=== PATIENT | female | born 1985 | race Caucasian/White ===

== ENCOUNTER 2020-11-17 12:41 | Outpatient (CLI) | payer MEDICARE, MEDICAID ==
[~2020-11-17] VITALS: Ht 162.6 cm; Wt 116.8 kg
[~2020-11-17 12:41] MED LIST: CITA40TA19 PO; FLUT9.9S NSEACH; IBUP-1780 PO; MEDR5TAB PO; PANT40TA2 PO
== END 2020-11-17 14:05 | disposition home or self-care (01) ==
LOC: PREOP 12:41
PROVIDERS: ATTEND Obstetrics & Gynecology
DX: Z01.818 Encounter for other preprocedural examination (principal)

== ENCOUNTER 2020-11-19 11:24 | Day surgery (SDC) | payer MEDICARE, MEDICAID ==
[~2020-11-19] VITALS: Ht 162.6 cm; Wt 116.8 kg
[2020-11-19] VITALS (11 sets, daily range): BP systolic 99–119; BP diastolic 48–78
--- NOTE | 2020-11-19 08:00 | Discharge Inst-Surgical ---
Discharge Inst-Surgical Depart Medication/Instructions New, Converted or Re-Newed RX: Other Consults/Follow Up Patient Instructions: As directed Orders & Referrals Follow Up Appt: Call to make follow up appt. for patient in 2 weeks. Activity: Rest for 24 hours, than as tolerated. May use [id number] Motrin as needed for cramps and pain Diet: As tolerated-Clear shower or tub bathe as desired. Patient to return to the clinic as soon as possible for: Temperature greater than 101F, Severe Pain, Foul discharge from incision or vagina, Excessive Bleeding (more than a period). Activity Activity as Tolerated: No Diet Discharge Diet: No Restrictions ISRRAEL HOANG MD Nov 19, 2020 08:00
--- NOTE | 2020-11-19 08:01 | Progress Note-Pre Operative ---
Pre-Operative Progress Note H&P Reviewed The H&P was reviewed, patient examined and no changes noted. Date Seen by Provider: Nov 19, 2020 Time Seen by Provider: 12:45 Date H&P Reviewed: Nov 19, 2020 Time H&P Reviewed: 12:45 Pre-Operative Diagnosis: Dysfunctional uterine bleeding/menorrhagia/severe vaginismus/endometrial po ISRRAEL HOANG MD Nov 19, 2020 08:01
--- NOTE | 2020-11-19 08:02 | Progress Note-Post Operative ---
Post-Operative Progess Note Surgeon (s)/Event Host (s) Surgeon ISRRAEL HOANG MD Event Host: None Pre-Operative Diagnosis Dysfunctional uterine bleeding/menorrhagia/severe vaginismus/endometrial po Post-Operative Diagnosis Same with pathology pending Procedure & Operative Findings Date of Procedure 11/19/20 Procedure Performed/Findings Examination under anesthesia/transvaginal ultrasound under anesthesia /colposcopy with biopsy /D&C Examination anesthesia reveals normal internal/external genitalia.The hymenal ring is relatively intact.The cervix is nulliparous the uterus is anteverted And freely mobile Left ovary is easily palpable the right ovary is palpable but not distinctly As the left Vaginal mucosa is normal and rugous There is no abnormal vaginal discharge Clitoris and perineum are normal Anesthesia Type General Estimated Blood Loss Estimated blood loss (mL): Minimal Specimens/Packing Specimens Removed Cervical biopsy (2) and endometrial curettings ISRRAEL HOANG MD Nov 19, 2020 08:02
[~2020-11-19 11:24] MED LIST changes: +D5 LR IV SOLUTION 1,000 ML IV SCH; +KETOROLAC 30 MG/ML VIAL IVP ONE; +ONDANSETRON 4 MG/2 ML (SDV) Z0FRAN IVP PRN; +fentaNYL INJ 100 MCG/2 ML AMP IVP PRN
[2020-11-19] MEDS ORDERED: ceFAZolin INJECTION 1,000 MG ONE (12:08)
[2020-11-19] MEDS ORDERED: WATER (STERILE) FOR INJECTION 10 ML ONE (12:09)
[2020-11-19] MEDS ORDERED: ceFAZolin INJECTION 1,000 MG in WATER (STERILE) FOR INJECTION 10 ML IV ONE (12:15)
[2020-11-19] MEDS ORDERED: LACTATED RINGERS 1,000 ML IV PRN (12:15)
[2020-11-19] MEDS ORDERED: FAMOTIDINE 20MG/2ML IV (PEPCID) ONE (12:34)
[2020-11-19] MEDS ORDERED: ROCURONIUM 10 MG/ML 5 ML SYRINGE IV ONE (12:44)
[2020-11-19] MEDS ORDERED: fentaNYL INJ 100 MCG/2 ML AMP ONE (12:44)
[2020-11-19] MEDS ORDERED: proPOfol 200 MG/20 ML (DIPRIVAN) VIAL IV ONE (12:44)
[2020-11-19] MEDS ORDERED: ONDANSETRON 4 MG/2 ML (SDV) Z0FRAN ONE (12:44)
[2020-11-19] MEDS ORDERED: MIDAZOLAM 2 MG/2 ML (VERSED) VIAL ONE (12:44)
[2020-11-19 12:57] LABS: BASOPHILS # (AUTO) 0.1 10^3/uL (0.0-0.1); BASOPHILS % (AUTO) 1 % (0-10); EOSINOPHILS # (AUTO) 0.2 10^3/uL (0.0-0.3); EOSINOPHILS % (AUTO) 2 % (0-10); HEMATOCRIT 41 % (35-52); HEMOGLOBIN 13.5 g/dL (11.5-16.0); LYMPHOCYTES # (AUTO) 4.4 10^3/uL (1.0-4.0); LYMPHOCYTES % (AUTO) 36 % (12-44); MEAN CORPUSCULAR HEMOGLOBIN 31 pg (25-34); MEAN CORPUSCULAR HGB CONC 33 g/dL (32-36); MEAN CORPUSCULAR VOLUME 93 fL (80-99); MEAN PLATELET VOLUME 9.9 fL (9.0-12.2); MONOCYTES # (AUTO) 0.5 10^3/uL (0.0-1.0); MONOCYTES % (AUTO) 4 % (0-12); NEUTROPHILS # (AUTO) 6.9 10^3/uL (1.8-7.8); NEUTROPHILS % (AUTO) 57 % (42-75); PLATELET COUNT 328 10^3/uL (130-400); WHITE BLOOD COUNT 12.1 10^3/uL (4.3-11.0)
--- NOTE | 2020-11-19 13:49 | Anesthesia-General Post-Op ---
General Patient Condition Mental Status/LOC: Same as Preop Cardiovascular: Satisfactory Nausea/Vomiting: Absent Respiratory: Satisfactory Pain: Controlled Complications: Absent Post Op Complications Complications None Follow Up Care/Instructions Patient Instructions None needed. Anesthesia/Patient Condition Patient Condition Patient is doing well, no complaints, stable vital signs, no apparent adverse anesthesia problems. No complications reported per nursing. SURINDER FULTON CRNA Nov 19, 2020 13:49
[2020-11-19] MEDS ORDERED: SEVOFLURANE (ULTANE) 15 ML INHAL SOLN ONE (13:50)
[2020-11-19] MEDS ORDERED: KETOROLAC 30 MG/ML VIAL ONE (14:00)
[2020-11-19] MEDS ORDERED: morphine INJ 10 MG/ML 1ML (SYR OR VIAL) ONE (14:00)
[2020-11-19] MEDS ORDERED: morphine INJ 10 MG/ML 1ML (SYR OR VIAL) IVP ONE (14:00)
[2020-11-19] MEDS ORDERED: KETOROLAC 30 MG/ML VIAL IVP ONE (14:00)
[2020-11-19] MEDS ORDERED: ONDANSETRON 4 MG/2 ML (SDV) Z0FRAN IVP PRN (14:00)
--- NOTE | 2020-11-19 14:07 | Diagnostic Imaging Report ---
PROCEDURE: Pelvic comp/transvaginal sonogram. TECHNIQUE: Complete transabdominal and transvaginal pelvic ultrasound was performed. In addition, limited pelvic Doppler was performed. INDICATION: Menorrhagia and dysmenorrhea. The uterus is anteverted measuring 6.0 x 2.9 x 4.2 cm. Endometrium is 4 mm in thickness. No myometrial mass is detected. The right ovary measures 2.7 x 1.6 x 1.4 cm and the left ovary measures 3.8 x 2.8 x 3.8 cm. Left ovary does contain a 3.2 x 2.1 x 3.1 cm cyst. There is blood flow to both ovaries. No free fluid is detected. IMPRESSION: 3.2 cm left ovarian cyst. This study is otherwise unremarkable. Dictated by: Dictated on workstation # [id number]
[2020-11-19] MEDS ORDERED: FAMOTIDINE 20MG/2ML IV (PEPCID) IVP ONE (17:30)
--- NOTE | 2020-11-19 21:55 | OPERATIVE REPORT ---
DATE OF SERVICE: 11/19/2020 PREOPERATIVE DIAGNOSES: Severe vaginismus with dysfunctional uterine bleeding and with no recent Pap smear. POSTOPERATIVE DIAGNOSES: Severe vaginismus with dysfunctional uterine bleeding and with no recent Pap smear. OPERATIVE PROCEDURE: Examination under anesthesia, transvaginal ultrasound under anesthesia, colposcopy with directed biopsy of the cervix under anesthesia and D and C. OPERATIVE DESCRIPTION: With the patient in the supine position under satisfactory general anesthesia, she was repositioned in dorsal lithotomy position in the [facility] and then transvaginal ultrasound was performed by radiology. See their report. On completion of the radiologist portion of procedure, the patient was prepped and draped in the usual fashion for vaginal surgery. The ultrasound had demonstrated that the bladder was essentially empty. Weighted speculum was used to expose the cervix, which was grasped anteriorly with single tooth tenaculum. The cervix was saturated with acetic acid and then after several minutes that was evacuated out. Colposcopy revealed acetowhite lesion at the 3 o'clock and 7 o'clock position of the cervix. Both of these lesions were biopsied essentially removing each lesion completely. They were labeled appropriately and sent to pathology for permanent section. The cervix was now serially dilated with Rosalio dilators to a #18 Rosalio and then a curved sharp curette was introduced and endometrial cavity curettaged in all 4 quadrants to good uterine cry. An adequate amount of tissue was retrieved for pathologic evaluation. The tissue was labeled as endometrial curettings and sent to pathology for permanent section as well. The curette having been removed, the tenaculum was removed. There was no bleeding from the puncture site. The biopsy sites on the cervix had been touched with silver nitrate and they were hemostatic. Sponge and needle counts were correct. Blood loss was minimal. The patient was now uneventfully awakened from her general anesthesia and transferred to the recovery room in stable condition with plans for discharge home PAR. Job ID: [id number] DocumentID: [id number] Dictated Date: 11/19/2020 13:40:17 Day Treatment Clinician/Art Therapist Date: 11/19/2020 21:54:08 Dictated By: ISRRAEL HOANG MD
== END 2020-11-19 16:05 ==
LOC: SDC 11:24
PROVIDERS: ATTEND Obstetrics & Gynecology
DX: N94.2 Vaginismus (principal); N93.9 Abnormal uterine and vaginal bleeding, unspecified; N92.0 Excessive and frequent menstruation with regular cycle; D26.1 Other benign neoplasm of corpus uteri; N72 Inflammatory disease of cervix uteri; G43.909 Migraine, unspecified, not intractable, without status migrainosus; K21.9 Gastro-esophageal reflux disease without esophagitis; E66.01 Morbid (severe) obesity due to excess calories; Z79.899 Other long term (current) drug therapy; Z68.41 Body mass index [BMI] 40.0-44.9, adult; Z83.3 Family history of diabetes mellitus; Z82.49 Family history of ischemic heart disease and other diseases of the circulatory system
CPT/HCPCS: 36415; 76830; 76856; 84703; 85025; 87081

== ENCOUNTER 2021-05-08 05:29 | Outpatient (CLI) | payer MEDICARE, MEDICAID ==
[~2021-05-08] VITALS: Ht 162.6 cm; Wt 113.6 kg
[~2021-05-08 05:29] MED LIST changes: -D5 LR IV SOLUTION 1,000 ML IV SCH; -KETOROLAC 30 MG/ML VIAL IVP ONE; -ONDANSETRON 4 MG/2 ML (SDV) Z0FRAN IVP PRN; -fentaNYL INJ 100 MCG/2 ML AMP IVP PRN
== END 2021-05-08 10:43 | disposition home or self-care (01) ==
LOC: PREOP 05:29
PROVIDERS: ATTEND Obstetrics & Gynecology
DX: Z01.818 Encounter for other preprocedural examination (principal)

== ENCOUNTER 2021-05-15 06:15 | Day surgery (SDC) | payer MEDICARE, MEDICAID ==
[2021-05-15] VITALS (13 sets, daily range): BP systolic 112–145; BP diastolic 61–92
[2021-05-15] MEDS ORDERED: LACTATED RINGERS 1,000 ML IV PRN (06:30)
[2021-05-15] MEDS ORDERED: ceFAZolin INJECTION 1,000 MG VIAL IV ONE (06:30)
[2021-05-15 07:01] LABS: BASOPHILS # (AUTO) 0.1 10^3/uL (0.0-0.1); BASOPHILS % (AUTO) 1 % (0-10); EOSINOPHILS # (AUTO) 0.1 10^3/uL (0.0-0.3); EOSINOPHILS % (AUTO) 1 % (0-10); HEMATOCRIT 42 % (35-52); LYMPHOCYTES # (AUTO) 4.2 10^3/uL (1.0-4.0); LYMPHOCYTES % (AUTO) 37 % (12-44); MEAN CORPUSCULAR HEMOGLOBIN 31 pg (25-34); MEAN CORPUSCULAR HGB CONC 33 g/dL (32-36); MEAN CORPUSCULAR VOLUME 91 fL (80-99); MEAN PLATELET VOLUME 9.7 fL (9.0-12.2); MONOCYTES # (AUTO) 0.6 10^3/uL (0.0-1.0); MONOCYTES % (AUTO) 5 % (0-12); NEUTROPHILS # (AUTO) 6.3 10^3/uL (1.8-7.8); NEUTROPHILS % (AUTO) 56 % (42-75); PLATELET COUNT 307 10^3/uL (130-400); WHITE BLOOD COUNT 11.3 10^3/uL (4.3-11.0)
[2021-05-15] MEDS ORDERED: SUCCINYLCHOLINE INJ 100 MG/5 ML SYR/VIAL ONE (07:11)
[2021-05-15] MEDS ORDERED: ONDANSETRON 4 MG/2 ML (SDV) Z0FRAN ONE (07:11)
[2021-05-15] MEDS ORDERED: LIDOCAINE PF 2% 5 ML (XYLOCAINE) VIAL ONE (07:11)
[2021-05-15] MEDS ORDERED: SEVOFLURANE (ULTANE) 15 ML INHAL SOLN ONE ×2 (07:11→09:12)
[2021-05-15] MEDS ORDERED: ROCURONIUM 10 MG/ML 5 ML SYRINGE IV ONE (07:11)
[2021-05-15] MEDS ORDERED: fentaNYL INJ 100 MCG/2 ML AMP ONE (07:11)
[2021-05-15] MEDS ORDERED: MIDAZOLAM 2 MG/2 ML (VERSED) VIAL ONE (07:11)
[2021-05-15] MEDS ORDERED: proPOfol 200 MG/20 ML (DIPRIVAN) VIAL IV ONE (07:11)
[2021-05-15] MEDS ORDERED: LIDOCAINE/EPI 2% 1:100,00 (XYLOCAINE) 20 ML VIAL ONE (07:27)
--- NOTE | 2021-05-15 07:52 | Progress Note-Pre Operative ---
Pre-Operative Progress Note H&P Reviewed The H&P was reviewed, patient examined and no changes noted. Date Seen by Provider: May 15, 2021 Time Seen by Provider: 07:52 Date H&P Reviewed: May 15, 2021 Time H&P Reviewed: 07:52 Pre-Operative Diagnosis: Menometrorrhagia chronic pelvic pain ISRRAEL HOANG MD May 15, 2021 07:52
--- NOTE | 2021-05-15 07:53 | Progress Note-Post Operative ---
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
[2021-05-15] MEDS ORDERED: fentaNYL INJ 100 MCG/2 ML AMP IVP PRN (08:00)
[2021-05-15] MEDS ORDERED: KETOROLAC 30 MG/ML VIAL IVP SCH (08:00)
[2021-05-15] MEDS ORDERED: ESTROGENS CONJ INJECTION 25 MG in WATER (STERILE) FOR INJECTION 5 ML IV ONE (08:00)
[2021-05-15] MEDS ORDERED: BENZOCAINE/MENTHOL (DERMOPLAST) 56 ML CAN TP PRN (08:00)
[2021-05-15] MEDS ORDERED: ONDANSETRON 4 MG/2 ML (SDV) Z0FRAN IVP PRN ×2 (08:00→09:45)
[2021-05-15] MEDS ORDERED: NALOXONE 0.4 MG/ML 1 ML (NARCAN) VIAL IV PRN (08:00)
[2021-05-15] MEDS ORDERED: oxyCODONE/APAP 5/325MG (PERCOCET 5) TABLET PO PRN (08:00)
[2021-05-15] MEDS ORDERED: PROMETHAZINE INJ 25 MG/ML (PHENERGAN) AMP IM PRN (08:00)
[2021-05-15] MEDS ORDERED: GLYCOPYRROLATE 0.2 MG/ML (ROBINUL) 2 ML VIAL ONE (09:14)
[2021-05-15] MEDS ORDERED: NEOSTIGMINE 3 MG/3 ML VIAL ONE (09:14)
--- NOTE | 2021-05-15 09:36 | Anesthesia-General Post-Op ---
General Patient Condition Mental Status/LOC: Same as Preop Cardiovascular: Satisfactory Nausea/Vomiting: Absent Respiratory: Satisfactory Pain: Controlled Complications: Absent Post Op Complications Complications None Follow Up Care/Instructions Patient Instructions None needed. Anesthesia/Patient Condition Patient Condition Patient is doing well, no complaints, stable vital signs, no apparent adverse anesthesia problems. No complications reported per nursing. KIKA RODRÍGUEZ CRNA May 15, 2021 09:36
[2021-05-15] MEDS ORDERED: KETOROLAC 30 MG/ML VIAL ONE (09:42)
[2021-05-15] MEDS ORDERED: WATER (STERILE) FOR INJECTION 10 ML ONE (09:43)
[2021-05-15] MEDS ORDERED: ESTROGENS CONJ INJECTION 5 ML ONE (09:43)
[2021-05-15] MEDS ORDERED: morphine INJ 10 MG/ML 1ML (SYR OR VIAL) ONE (09:44)
[2021-05-15] MEDS ORDERED: morphine INJ 10 MG/ML 1ML (SYR OR VIAL) IVP ONE (09:45)
[2021-05-15] MEDS ORDERED: HYDROmorphone 2 MG/ML VIAL (DILAUDID) IV ONE (09:45)
[2021-05-15] MEDS ORDERED: PROMETHAZINE INJ 25 MG/ML (PHENERGAN) AMP IVP ONE (09:45)
[2021-05-15] MEDS ORDERED: MEPERIDINE (DEMEROL) INJ 50 MG/ML IVP ONE (09:45)
--- NOTE | 2021-05-15 10:37 | Discharge Inst-Surgical ---
Discharge Inst-Surgical Depart Medication/Instructions New, Converted or Re-Newed RX: Other Consults/Follow Up Patient Instructions: As directed Orders & Referrals Follow Up Appt: Return to clinic on Tuesday, May 18, 2021 for staple removal Call to make follow up appt. for patient in 4 weeks. Activity: Rest for 24 hours, than as tolerated. Wound Care: May remove Band-Aid tomorrow. Replace as desired. Keep incisions clean and dry. Wash daily with soap and water. Prescriptions for postoperative/discharge medications were sent from my office Diet: As tolerated-Clear Liquids only if nauseated. Tomorrow, may shower or tub bathe as desired. No driving for 24 hours, no alcoholic beverages for 24 hours, and nothing per vagina (no tampons, douching, or intercoarse) for 2 weeks. Patient to return to the clinic as soon as possible for: Temperature greater than 101F, Severe Pain, Foul discharge from incision or vagina, Excessive Bleeding (more than a period). ISRRAEL HOANG MD May 15, 2021 10:37 am
[2021-05-15] MEDS: D5 LR IV SOLUTION 1,000 ML IV SCH ×2 (14:02→17:54)
--- NOTE | 2021-05-15 14:05 | OPERATIVE REPORT ---
DATE OF SERVICE: 05/15/2021 PREOPERATIVE DIAGNOSES: Menometrorrhagia and chronic pelvic pain. POSTOPERATIVE DIAGNOSES: Menometrorrhagia and chronic pelvic pain with uterine anomaly. OPERATIVE PROCEDURE: Total laparoscopic hysterectomy with bilateral salpingectomy as well as extensive pelvic adhesiolysis. OPERATIVE DESCRIPTION: With the patient in supine position under satisfactory general anesthesia, she was repositioned in dorsal lithotomy position in the [facility] and prepped and draped in the usual fashion for abdominal and vaginal surgery using da Alonso assistance. Speculum was placed in the vagina, cervix exposed, grasped anteriorly with single tooth tenaculum and the uterus was sounded to 9 cm with uterine sound. Cervix was then serially dilated with Rosalio dilators and then a Cheryl II manipulator was placed in the usual manner using a 6 mm x 8 cm uterine probe and a 25 mm colpotomy ring. Sutures of #1 Vicryl placed at 3 and 9 o'clock position of the cervix and affixed to the uterine manipulator to stabilize the cervix and uterus to the manipulator. Barrera catheter was placed in the urinary bladder and the patient was brought in low dorsal lithotomy position. The abdomen was exposed. The patient was quite rotund, a 12 mm incision was made 10 cm superior to the umbilicus. An attempt was made to place a Veress needle there and that was unsuccessful. An attempt was made to place the Veress needle supraumbilically that was unsuccessful. An attempt was made to place the Veress needle in the left upper quadrant that was unsuccessful. A 5 mm port was then placed using an Optiview trocar, port was placed under direct vision entering the peritoneal cavity without difficulty. The abdominal cavity was then insufflated with carbon dioxide. The patient was placed in the small bit of Trendelenburg. The abdominal wall was transilluminated, and a 12 mm port placed in the midline incision and 8 mm ports were placed incisions of those sizes, 8 cm lateral to the umbilicus and about 3 cm superior to the umbilicus. The patient was placed in steep Trendelenburg down, the da Alonso column was advanced on the patient, docked and then operative instrument placed in right and left lateral ports and I retired to the da Alonso console. At the console, the pelvis was examined. 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 Both ovaries were present and normal. The left fallopian tube was present and emanated from this small rudimentary appearing left uterine horn. There were some adhesions of the sigmoid and bowel over the left pelvic brim and over the left IP ligament. These were taken down with careful blunt, sharp and cautery dissection. Freeing the adhesions and exposing the pelvis completely, the laparoscope was rotated. The appendix was seen. It was a normal vermiform appendix. Laparoscope was brought back to the pelvis. The right fallopian tube was grasped and elevated off the ovary using the vessel sealer, the mesosalpinx was clamped, cauterized and divided across the sized uterus. The uteroovarian pedicle was then clamped, cauterized and divided. The round ligament was clamped, cauterized and divided. The broad ligament was clamped, cauterized, and divided down on to the cardinal ligament. Same procedure performed on the left, removing the small uterine horn as we traversed over to the apparent cervix tissue of the right uterine horn. Hemostasis was complete at this point. Both ovaries were conserved. At this point, both ureters, which seemed to peristalse and were well away from any areas of dissection. The right instrument was changed out for a monopolar shear and then the anterior lower uterine segment peritoneum was divided. A colpotomy incision was started at 12 o'clock position after the bladder was dissected down off the lower uterine segment. Colpotomy incision was continued circumferentially until the entire colpotomy ring was exposed. The uterus and fallopian tubes and rudimentary left uterine horn were removed through the vagina. The vaginal cuff was closed with a single suture V-Loc barbed suture in the usual in a running locked on the right angle to the left angle and showing inclusion of the uterine vessel pedicles bilaterally. Pelvis was examined for hemostasis that was complete. Both ureters were seemed peristalse. The procedure at this point was terminated. The operative instruments were removed under direct vision as were the ports. The abdomen was exhaust of the insufflating gas. The skin incisions were stapled after closing the fascia at the supraumbilical incision with a iudjih-pa-ggnxu suture of 2-0 Vicryl. Speculum was placed in the vagina. The vaginal cuff was examined and found completely hemostatic and completely intact. There was a laceration of the hymenal ring at the 5 o'clock position that was oozing a bit in order to prevent postoperative bleeding. A gongzy-bm-oewwb suture of 2-0 Vicryl was placed over the small laceration effecting complete hemostasis. Sponge and needle counts were correct. Blood loss was minimal. Urine output remained clear. The Barrera catheter was removed. The patient was uneventfully awakened from her general anesthesia and transferred to recovery room in stable condition. Job ID: [id number] DocumentID: [id number] Dictated Date: 05/15/2021 09:19:05 Tracer Lathe Set Up Operator Date: 05/15/2021 14:04:39 Dictated By: ISRRAEL HOANG MD
[2021-05-15] MEDS: KETOROLAC 30 MG/ML VIAL IVP SCH ×2 (15:40→21:04)
[2021-05-15] MEDS: DOCUSATE SODIUM 100 MG (COLACE) CAP PO SCH (21:03)
[2021-05-16] MEDS: D5 LR IV SOLUTION 1,000 ML IV SCH (00:47)
[2021-05-16] MEDS: KETOROLAC 30 MG/ML VIAL IVP SCH (03:15)
[2021-05-16 03:41] VITALS: BP 128/64
[2021-05-16 08:00] VITALS: BP 129/65
[2021-05-16] MEDS ORDERED: ONDANSETRON 4 MG/2 ML (SDV) Z0FRAN IVP PRN (08:00)
[2021-05-16] MEDS: DOCUSATE SODIUM 100 MG (COLACE) CAP PO SCH (08:15)
[2021-05-16] MEDS ORDERED: DOCUSATE SODIUM 100 MG (COLACE) CAP PO SCH (09:00)
--- NOTE | 2021-05-16 09:32 | Progress Note ---
Standard Progress Note Progress Notes/Assess & Plan Date Seen by a Provider: May 16, 2021 Time Seen by a Provider: 09:31 Progress/Assessment & Plan This patient is without complaint. She is ambulating, voiding, tolerating oral intake and has good pain control. She is requesting discharge home. Vital Signs Date Time Temp Pulse Resp B/P (MAP) Pulse Ox O2 Delivery O2 Flow Rate FiO2 05/16/21 03:41 36.7 92 16 128/64 (85) 94 Room Air 05/15/21 23:58 36.7 88 16 139/66 (90) 95 Room Air 05/15/21 20:00 37.1 90 18 126/71 (89) 97 Room Air 05/15/21 13:40 36.5 107 20 133/69 (90) 97 Room Air 05/15/21 11:30 36.4 83 20 137/80 (99) 98 Nasal Cannula 1.00 05/15/21 10:40 36.7 98 20 133/78 (96) 100 Nasal Cannula 2.00 05/15/21 10:40 100 Nasal Cannula 2.00 05/15/21 10:25 Nasal Cannula 3 05/15/21 10:19 36.5 16 145/92 (109) 100 Nasal Cannula 3 05/15/21 10:10 16 128/77 (94) 92 Room Air 05/15/21 10:00 18 132/81 (98) 100 OxyMask 10 05/15/21 10:00 OxyMask 10 05/15/21 09:50 18 134/66 (88) 100 OxyMask 10 05/15/21 09:40 20 131/82 (98) 100 OxyMask 10 I & O 05/16/21 07:00 Intake Total 5720 ml Output Total 3025 ml Balance 2695 ml Vital signs are stable. Patient is afebrile. The abdomen is benign the surgical dressings are clean and dry Extremities show no clubbing or cyanosis. There is no Homans' sign. Assessment and plan Postoperative day #1 status post total laparoscopic hysterectomy with bilateral salpingectomies as well as pelvic adhesiolysis. Patient is doing well will be discharged home with follow-up in clinic Final Diagnosis Menorrhagia menometrorrhagia chronic pelvic pain ISRRAEL HOANG MD May 16, 2021 9:32 am
[2021-05-16 09:45] VITALS: BP 129/65
[2021-05-16] MEDS ORDERED: IBUPROFEN 800 MG (MOTRIN) TAB PO SCH (10:00)
== END 2021-05-16 09:45 | disposition home or self-care (01) ==
LOC: SDC 06:15 → WS 10:25 → SDC 05-16 09:45
PROVIDERS: ATTEND Obstetrics & Gynecology
DX: N92.1 Excessive and frequent menstruation with irregular cycle (principal); N92.0 Excessive and frequent menstruation with regular cycle; D25.9 Leiomyoma of uterus, unspecified; N94.6 Dysmenorrhea, unspecified; N73.6 Female pelvic peritoneal adhesions (postinfective); G89.29 Other chronic pain; R10.2 Pelvic and perineal pain; E66.01 Morbid (severe) obesity due to excess calories; F52.5 Vaginismus not due to a substance or known physiological condition
CPT/HCPCS: 36415; 84703; 85025; 87081; 88307

== ENCOUNTER 2021-12-23 09:21 | Outpatient (CLI) | payer MEDICARE, MEDICAID ==
[~2021-12-23] VITALS: Ht 160 cm; Wt 116.6 kg
== END 2021-12-23 10:51 | disposition home or self-care (01) ==
LOC: PREOP 09:21
PROVIDERS: ATTEND Surgery
DX: Z01.818 Encounter for other preprocedural examination (principal)

== ENCOUNTER 2021-12-30 11:04 | Day surgery (SDC) | payer MEDICARE, MEDICAID ==
[~2021-12-30] VITALS: Ht 160 cm; Wt 116.6 kg
[2021-12-30] MEDS ORDERED: LACTATED RINGERS 1,000 ML IV STA (11:11)
[2021-12-30] MEDS ORDERED: LIDOCAINE JELLY 2% 6 ML SYRINGE MM PRN (11:15)
[2021-12-30] MEDS ORDERED: HURRICAINE EXT TUBE (BENZOCAINE) XX PRN (11:15)
--- NOTE | 2021-12-30 11:23 | Progress Note-Pre Operative ---
Pre-Operative Progress Note Date of Available H&P: Dec 30, 2021 Date H&P Reviewed: Dec 30, 2021 Time H&P Reviewed: 11:00 History & Physical: No changes noted Pre-Operative Diagnosis: GERD SKYLER LEHMAN MD Dec 30, 2021 11:23
--- NOTE | 2021-12-30 11:24 | Discharge Inst-Surgical ---
D/C Lap Instructions-DOMINIK Follow Up Activity as tolerated High Fiber Diet 25g or more per day Avoid Alcohol, Caffeine, Spicy Ramey and Acid foods. Drink 64 fluid oz or more of fluids per day. Symptoms to Report: Fever over 101 degree F, Nausea/Vomiting If any problems/questions: Contact your physician or go to Emergency Room SKYLER LEHMAN MD Dec 30, 2021 11:24
[2021-12-30] MEDS ORDERED: ONDANSETRON 4 MG (ZOFRAN) ORAL DISSOLVE TAB PO PRN (11:30)
[2021-12-30] MEDS ORDERED: ONDANSETRON 4 MG/2 ML (SDV) Z0FRAN IVP PRN (11:30)
[2021-12-30 11:34] VITALS: BP 106/56
[2021-12-30] MEDS ORDERED: proPOfol 200 MG/20 ML (DIPRIVAN) VIAL IV ONE ×2 (12:09→13:25)
[2021-12-30] MEDS ORDERED: MIDAZOLAM 2 MG/2 ML (VERSED) VIAL ONE (12:09)
[2021-12-30 12:40] VITALS: BP 114/57
[2021-12-30 12:45] VITALS: BP 105/61
[2021-12-30 12:50] VITALS: BP 107/63
--- NOTE | 2021-12-30 13:06 | Progress Note-Post Operative ---
Post-Operative Progess Note Surgeon (s)/Waiter/Waitress Cafeteria (s) Surgeon SKYLER LEHMAN MD Waiter/Waitress Cafeteria: none Pre-Operative Diagnosis GERD Post-Operative Diagnosis refux esophagitis(grade B-C), mild distal esophageal stricture, moderate HH(3cm), mild gastritis. Procedure & Operative Findings Date of Procedure 12/30/21 Procedure Performed/Findings EGD with bx and balloon dilatation Anesthesia Type mac Estimated Blood Loss Estimated blood loss (mL): minimal Specimens/Packing Specimens Removed ge jxn, antrum SKYLER LEHMAN MD Dec 30, 2021 13:06
[2021-12-30 13:07] VITALS: BP 107/63
--- NOTE | 2021-12-31 00:30 | OPERATIVE REPORT ---
DATE OF SERVICE: 12/30/2021 ATTENDING PRIMARY CARE PHYSICIAN: Dago Rangel DO PREOPERATIVE DIAGNOSIS: Gastroesophageal reflux disease. POSTOPERATIVE DIAGNOSES: Reflux esophagitis between Wolfe grade B and C, mild distal esophageal stricture, moderate size hiatal hernia approximately 3 cm in size, mild gastritis, no distal obstructions. PROCEDURE: EGD with biopsy and balloon dilatation. SURGEON: Skyler Lehman MD ANESTHESIA: Monitored anesthesia care. ESTIMATED BLOOD LOSS: Minimal. FINDINGS: Reflux esophagitis between Wolfe grade B and C, mild distal esophageal stricture, moderate size hiatal hernia approximately 3 cm in size, mild gastritis, no distal obstructions. DISPOSITION: The patient tolerated the procedure well. INDICATIONS: The patient is a 36-year-old female whom we have seen before in the past. She has had issues with gastroesophageal reflux disease for many years and we had done an EGD on her in 2014 and she was found to have a moderate gastritis. She reports that her reflux has worsened over time with epigastric burning sensation as well as crampy pain. She does not report any hematemesis, no coffee-ground emesis. DESCRIPTION OF PROCEDURE: The patient was brought to the endoscopy suite, laid in the left lateral decubitus position. After adequate IV pain and sedative medications and monitored anesthesia care, the mouth piece was applied. The endoscope was placed in the mouth, visualizing the pharynx and hypopharyngeal region. Vocal cords, epiglottis and vallecula identified and appeared to be normal. The endoscope was then gently intubated at the esophageal opening and the esophagus was insufflated. The endoscope was then advanced through the first, second and third portions of the esophagus at the level of the GE junction, a reflux esophagitis, Wolfe between grade B and C identified. It appeared that a mild distal esophageal stricture was also identified. The GE junction was also intrathoracic consistent with a hiatal hernia. Biopsy was taken at the GE junction with forceps with visualization of good hemostasis. The endoscope was then advanced into the stomach and the endoscope was retroflexed, visualizing a moderate-sized hiatal hernia approximately 3 cm in size. There was a mild gastritis and no formal ulcerations polyps or neoplasms. A biopsy was taken of the antrum to rule out H. pylori with visualization with good hemostasis. The endoscope was then advanced through the pylorus and the first and second portion of the duodenum, which appeared normal with no distal obstructions. The balloon was then placed in the stomach and pulled back to the area of the stricture. We then proceeded in a graded stepwise fashion from 2, 4, then eventually 6 atmospheres of pressure or 20 mm in luminal diameter with moderate resistance and left this in place for approximately 60 seconds. The balloon was then desufflated and removed with visualization of good hemostasis as well as no mucosal tears. The endoscope was then slowly withdrawn while taking a second look and suctioning of residual air with no additional findings. The patient tolerated the procedure well. We will recommend necessary lifestyle and dietary accommodation including small and more frequent meals, avoidance of eating at night as well as head elevation while lying supine. She also needs to avoid caffeinated beverages spicy, greasy and acidic foods. Any modality for long-term diet and exercise and weight loss would also be beneficial. She also does have a hiatal hernia, which does exacerbate the issue; however, due to her body mass index, which is greater than 45, recurrence rates of the hiatal hernia repair are unacceptably high. If she does decide to do a surgical procedure, we would recommend a surgical procedure along with repairing of the hiatal hernia simultaneously. Job ID: [id number] DocumentID: [id number] Dictated Date: 12/30/2021 12:50:14 Bandage Wrapping Machine Operator Date: 12/31/2021 00:29:00 Dictated By: SKYLER LEHMAN MD
== END 2021-12-30 13:16 | disposition home or self-care (01) ==
LOC: ENDO 11:04
PROVIDERS: ATTEND Surgery
DX: K22.2 Esophageal obstruction (principal); K21.00 Gastro-esophageal reflux disease with esophagitis, without bleeding; K44.9 Diaphragmatic hernia without obstruction or gangrene; K29.70 Gastritis, unspecified, without bleeding; E66.01 Morbid (severe) obesity due to excess calories; Z68.42 Body mass index [BMI] 45.0-49.9, adult

== ENCOUNTER 2022-03-02 12:16 | Outpatient (CLI) | payer MEDICARE, MEDICAID | END 2022-03-02 12:55 | LOC: SLEEP 12:16 | PROVIDERS: ATTEND Otolaryngology Otolaryngology/Facial Plastic Surgery | DX: G47.33 Obstructive sleep apnea (adult) (pediatric) (principal); G47.10 Hypersomnia, unspecified; R06.83 Snoring; R51.9 Headache, unspecified | CPT/HCPCS: G0399 ==

== ENCOUNTER 2022-03-24 18:51 | Outpatient (CLI) | payer MEDICARE, MEDICAID | END 2022-03-25 06:36 | disposition home or self-care (01) | LOC: SLEEP 18:51 | PROVIDERS: ATTEND Otolaryngology Otolaryngology/Facial Plastic Surgery | DX: G47.33 Obstructive sleep apnea (adult) (pediatric) (principal) | CPT/HCPCS: 95811 ==